=== PATIENT | female | born 1970 | race Caucasian/White ===

== ENCOUNTER 2016-12-19 16:51 | Emergency (ER) | payer OTHER ==
[~2016-12-19] VITALS: Ht 172.7 cm; Wt 108.9 kg
[~2016-12-19 16:51] MED LIST: 'PARAFON FORTE500 M1 PO; ALBUTEROL2.5 MG/0.5 INH; AMOXIL500 MG PO; CARTIA XT240 MG PO; DULCOLAX5 MG PO; DYAZIDE 25 MG-31 CAP PO; FLAGYL500 MG PO; HCTZ/TRIAMTEREN1 CA2 PO; HYDROCODONE BIT1 T11 PO; IBU800 M1 PO; LABETALOL HCL200 MG PO; LASIX20 MG PO; LEVOFLOXACIN500 MG PO; MYLICON, MYLANT80 MG PO; NAPROSYN500 MG PO; NORCO 325 MG-51 TAB PO; PERCOCET 325 MG1 TA2; PERCOCET 325 MG1 TA2 PO; PROVERA10 MG PO
[2016-12-19] MEDS ORDERED: CYCLOBENZAPRINE10 MG PO (19:46)
[2016-12-19] MEDS ORDERED: MELOXICAM15 MG PO (19:46)
== END 2016-12-19 19:48 | disposition home or self-care (01) ==
LOC: ED 16:51
DX: G89.29 Other chronic pain (principal); M54.5 Low back pain; M19.90 Unspecified osteoarthritis, unspecified site

== ENCOUNTER → 2017-04-29 | Outpatient (CLI) | payer OTHER ==
[~2017-04-29] MED LIST changes: +CYCLOBENZAPRINE10 MG PO; +MELOXICAM15 MG PO
== END | disposition home or self-care (01) ==
LOC: US 06:00
DX: R60.0 Localized edema (principal); I10 Essential (primary) hypertension

== ENCOUNTER 2017-08-21 21:01 | Emergency (ER) | payer OTHER ==
[~2017-08-21] VITALS: Ht 172.7 cm; Wt 109.8 kg
[2017-08-21 21:38] LABS: BASO % 0.4 % (0.0-1.0); EOS # 0.4 10*3/uL (0.0-0.4); EOS % 4.9 % (1.0-4.0); HEMOGLOBIN 14.1 g/dl (12.0-16.0); LYMPH # 2.8 10*3/uL (1.3-4.4); LYMPH % 33.3 % (27.0-41.0); MEAN CELL VOLUME 84.6 fl (81.0-99.0); MEAN CORPUSCULAR HGB 29.8 pg (27.0-31.0); MEAN CORPUSCULAR HGB CONC 35.3 g/dl (33.0-37.0); MEAN PLATELET VOLUME 11.3 fl (9.6-12.3); MONO # 1.1 10*3/uL (0.1-1.0); MONO % 12.5 % (3.0-9.0); NEUT # 4.1 10*3/uL (2.3-7.9); NEUT % 48.8 % (47.0-73.0); PLATELET COUNT AUTOMATED 195 10*3/uL (130-400); RED BLOOD COUNT 4.73 10*6/uL (4.10-5.10); RED CELL DISTRI WIDTH 12.9 % (0-14.5); WHITE BLOOD COUNT 8.4 10*3/uL (4.8-10.8)
[2017-08-21 21:53] LABS: ALBUMIN 3.6 gm/dl (3.1-4.5); ALKALINE PHOSPHATASE 84 U/L (45-117); BUN 17 mg/dl (7-24); CHLORIDE 105 mmol/L (98-107); CREATININE 0.97 mg/dL (0.55-1.02); POTASSIUM 3.4 mmol/L (3.5-5.1); SGOT/AST 36 IU/L (3-35); SGPT/ALT 46 U/L (12-78); SODIUM 139 mmol/L (136-145); TOTAL PROTEIN 6.7 gm/dL (6.4-8.2)
[2017-08-21] MEDS ORDERED: KETOROLAC10 MG PO (22:35)
[2017-08-21] MEDS ORDERED: Orphenadrine C100 MG PO (22:45)
== END 2017-08-21 23:15 | disposition home or self-care (01) ==
LOC: ED 21:01
PROVIDERS: Emergency Medicine Emergency Medical Services
DX: M25.551 Pain in right hip (principal); M06.9 Rheumatoid arthritis, unspecified; F17.200 Nicotine dependence, unspecified, uncomplicated; Z98.890 Other specified postprocedural states; Z79.899 Other long term (current) drug therapy

== ENCOUNTER 2018-04-01 08:28 | Emergency (ER) | payer OTHER ==
[~2018-04-01] VITALS: Ht 172.7 cm; Wt 148.8 kg
[~2018-04-01 08:28] MED LIST changes: +KETOROLAC10 MG PO; +Orphenadrine C100 MG PO
== END 2018-04-01 10:01 | disposition home or self-care (01) ==
LOC: ED 08:28
DX: T16.1XXA Foreign body in right ear, initial encounter (principal); Z79.899 Other long term (current) drug therapy; W45.8XXA Other foreign body or object entering through skin, initial encounter; Y93.89 Activity, other specified; Y92.89 Other specified places as the place of occurrence of the external cause; Y99.8 Other external cause status

== ENCOUNTER → 2020-06-18 | Outpatient (CLI) | payer OTHER ==
[~2020-06-18] MED LIST changes: +COLACE100 MG PO; +LIPITOR10 MG PO; +NORCO 5-325 TA1 EACH PO; +VITAMIN D-32000 UNI1 PO
== END | disposition home or self-care (01) ==
LOC: MAMMO 05-14 08:00
PROVIDERS: ATTEND Nurse Practitioner Family
DX: Z12.31 Encounter for screening mammogram for malignant neoplasm of breast (principal); N64.89 Other specified disorders of breast

== ENCOUNTER → 2020-08-13 | Outpatient (CLI) | payer OTHER | END | disposition home or self-care (01) | LOC: US 07:24 | PROVIDERS: ATTEND Nurse Practitioner Family | DX: K76.0 Fatty (change of) liver, not elsewhere classified (principal); E78.2 Mixed hyperlipidemia; I10 Essential (primary) hypertension; R79.89 Other specified abnormal findings of blood chemistry ==

== ENCOUNTER 2021-01-31 23:50 | Emergency (ER) | payer OTHER ==
[~2021-01-31] VITALS: Ht 172.7 cm; Wt 111.1 kg
== END 2021-02-01 05:21 | disposition home or self-care (01) ==
LOC: ED 23:50
DX: M06.861 Other specified rheumatoid arthritis, right knee (principal); I10 Essential (primary) hypertension; M25.561 Pain in right knee; Z87.891 Personal history of nicotine dependence; Z79.899 Other long term (current) drug therapy

== ENCOUNTER → 2021-03-05 | Outpatient (CLI) | payer OTHER | END | disposition home or self-care (01) | LOC: RAD 15:36 | PROVIDERS: ATTEND Nurse Practitioner Family | DX: J98.11 Atelectasis (principal); R05 Cough; Z20.822 Contact with and (suspected) exposure to COVID-19 ==

== ENCOUNTER 2022-03-31 20:08 | Emergency (ER) | payer OTHER ==
[~2022-03-31] VITALS: Ht 172.7 cm; Wt 99.8 kg
[2022-04-01] MEDS ORDERED: PREDNISONE20 M1 PO (00:46)
[2022-04-01] MEDS ORDERED: HYDROCODONE-AC1 EAC1 PO (00:48)
== END 2022-04-01 00:55 | disposition home or self-care (01) ==
LOC: ED 20:08
DX: M25.562 Pain in left knee (principal); M17.12 Unilateral primary osteoarthritis, left knee; Z98.890 Other specified postprocedural states; Z98.51 Tubal ligation status; Z79.899 Other long term (current) drug therapy; X50.1XXA Overexertion from prolonged static or awkward postures, initial encounter; Y93.01 Activity, walking, marching and hiking; Y92.89 Other specified places as the place of occurrence of the external cause; Y99.9 Unspecified external cause status

== ENCOUNTER → 2022-10-15 | Outpatient (CLI) | payer MEDICAID ==
[~2022-10-15] MED LIST changes: +HYDROCODONE-AC1 EAC1 PO; +PREDNISONE20 M1 PO
== END | disposition home or self-care (01) ==
LOC: RAD 13:14
PROVIDERS: ATTEND Nurse Practitioner Family
DX: M25.561 Pain in right knee (principal); M25.562 Pain in left knee; M54.50 Low back pain, unspecified; I70.0 Atherosclerosis of aorta

== ENCOUNTER → 2024-12-20 | Outpatient (CLI) | payer MEDICAID | END | disposition home or self-care (01) | LOC: MRI 12:32 | PROVIDERS: ATTEND Podiatrist | DX: M72.2 Plantar fascial fibromatosis (principal); M25.472 Effusion, left ankle; M79.89 Other specified soft tissue disorders; D49.2 Neoplasm of unspecified behavior of bone, soft tissue, and skin ==

== ENCOUNTER → 2025-02-07 | Outpatient (CLI) | payer MEDICAID ==
[2025-02-07 09:20] LABS: BASO # 0.1 10*3/uL (0.0-0.1); BASO % 0.7 % (0.0-1.0); EOS # 0.7 10*3/uL (0.0-0.4); EOS % 7.5 % (1.0-4.0); MEAN CELL VOLUME 86.3 fl (81.0-99.0); MEAN CORPUSCULAR HGB 28.8 pg (27.0-31.0); MEAN PLATELET VOLUME 11.5 fl (9.6-12.3); MONO # 0.7 10*3/uL (0.1-1.0); MONO % 7.2 % (3.0-9.0); NEUT # 5.6 10*3/uL (2.3-7.9); NEUT % 58.9 % (47.0-73.0); NUCLEATED RED BLOOD CELL 0.0 % (0.0-0.0); NUCLEATED RED BLOOD CELL 0.0 10*3/uL (0.0-0.0); PLATELET COUNT AUTOMATED 219 10*3/uL (130-400); RED CELL DISTRI WIDTH 13.2 % (0-14.5)
== END ==
LOC: LAB 08:47
PROVIDERS: ATTEND Nurse Practitioner Family
DX: R74.01 Elevation of levels of liver transaminase levels (principal); Z13.1 Encounter for screening for diabetes mellitus

== ENCOUNTER → 2025-02-17 | Outpatient (CLI) | payer MEDICAID | END | disposition home or self-care (01) | LOC: CT 02-08 10:00 | PROVIDERS: ATTEND Nurse Practitioner Family | DX: Z12.2 Encounter for screening for malignant neoplasm of respiratory organs (principal); K76.0 Fatty (change of) liver, not elsewhere classified; I34.81 Nonrheumatic mitral (valve) annulus calcification; R16.1 Splenomegaly, not elsewhere classified; J98.11 Atelectasis; I25.10 Atherosclerotic heart disease of native coronary artery without angina pectoris; Z87.891 Personal history of nicotine dependence ==

== ENCOUNTER → 2025-03-09 | Outpatient (CLI) | payer MEDICAID | END | disposition home or self-care (01) | LOC: US 02-20 09:00 | PROVIDERS: ATTEND Nurse Practitioner Family | DX: R74.01 Elevation of levels of liver transaminase levels (principal) ==